=== PATIENT | female | born 1975 | race Two or more races ===

== ENCOUNTER 2020-08-30 09:50 | Emergency (ER) | payer OTHER ==
[~2020-08-30] VITALS: Ht 175.3 cm; Wt 72.6 kg
[~2020-08-30 09:50] MED LIST: TRAMADOL HCL-AP1 TAB PO
== END 2020-08-30 11:27 | disposition home or self-care (01) ==
LOC: ER 09:50
DX: T63.441A Toxic effect of venom of bees, accidental (unintentional), initial encounter (principal); Y92.89 Other specified places as the place of occurrence of the external cause

== ENCOUNTER 2020-10-01 10:23 | Outpatient (CLI) | payer OTHER | END 2020-10-01 10:31 | disposition home or self-care (01) | LOC: SONOGRAMA 10:23 | PROVIDERS: ATTEND Orthopaedic Surgery | DX: M25.122 Fistula, left elbow (principal) ==

== ENCOUNTER → 2023-10-07 | Outpatient (CLI) | payer OTHER | END | disposition home or self-care (01) | LOC: NUCLEAR 07:00 | DX: K81.1 Chronic cholecystitis (principal) ==